=== PATIENT | female | born 1990 | race Hispanic/Latino ===

== ENCOUNTER 2023-07-30 10:18 | Emergency (ER) | payer BC ==
[~2023-07-30] VITALS: Ht 175.3 cm; Wt 94.8 kg
[2023-07-30 11:00] LABS: HEMATOCRIT 32.3 % (36-48); IMMATURE GRANULOCYTE ABSOLUTE 0.02 K/uL (0-1); LYMPHOCYTES # (AUTO) 0.2 K/uL (1.0-4.8); LYMPHOCYTES % (AUTO) 3.9 % (21.0-51.0); MEAN CORPUSCULAR HEMOGLOBIN 22.9 pg (27.0-33.0); MEAN CORPUSCULAR HGB CONC 31.3 g/dL (32.0-36.0); MEAN CORPUSCULAR VOLUME 73.2 fL (79-99); MONOCYTES # (AUTO) 0.3 K/uL (0.1-1.0); MONOCYTES % (AUTO) 5.9 % (3.0-13.0); NEUTROPHILS % (AUTO) 89.8 % (40.0-77.0); PLATELET COUNT (AUTO) 185 K/uL (130-400); RED BLOOD CELL COUNT(AUTO) 4.41 MIL/uL (4.00-5.50); RED CELL DISTRIBUTION WIDTH 17.7 % (11.0-15.5); WHITE BLOOD COUNT (AUTO) 5.6 K/uL (4.8-10.8)
[2023-07-30 11:08] LABS: RAPID GROUP A STREP negative (NEGATIVE)
[2023-07-30 11:09] LABS: SARS-CoV-2, RNA, NAAT POSITIVE SARS CoV-2 (NEGATIVE)
[2023-07-30 11:16] LABS: ALBUMIN 3.7 g/dL (3.5-5.0); BILIRUBIN,TOTAL 0.3 mg/dL (0.2-1.0); CREATININE 0.8 mg/dL (0.5-1.5); POTASSIUM 3.3 mmol/L (3.5-5.1); TOTAL PROTEIN, SERUM 7.1 g/dL (6.0-8.3)
[2023-07-30 11:17] LABS: INFLUENZA TYPE A Negative For Type A (NEGATIVE); INFLUENZA TYPE B Negative For Type B (NEGATIVE)
[2023-07-30] MEDS: ACETAMINOPHEN 500 MG TABLET PO ONE (11:49)
[2023-07-30] MEDS: KCL 20 MEQ ERTAB PO ONE (11:50)
[2023-07-30] MEDS ORDERED: BENZ-39 PO (11:50)
[2023-07-30] MEDS ORDERED: AUD IH (11:50)
[2023-07-30] MEDS ORDERED: AZIT500T2 PO (11:50)
[2023-07-30 12:16] VITALS: BP 111/70; PULSE 112; RESP 19; O2SAT 100
== END 2023-07-30 12:12 | disposition home or self-care (01) ==
LOC: EDH 10:18
DX: U07.1 COVID-19 (principal); R05.9 Cough, unspecified; R51.9 Headache, unspecified; E87.6 Hypokalemia
CPT/HCPCS: 36415; 71045; 80053; 83690; 84484; 85025; 87635; 87804; 87880; 93005

== ENCOUNTER 2023-07-31 21:54 | Emergency (ER) | payer BC ==
[~2023-07-31 21:54] MED LIST: AUD IH; AZIT500T2 PO; BENZ-39 PO
== END 2023-07-31 22:48 | disposition left against medical advice (07) ==
LOC: EDH 21:54
DX: R68.89 Other general symptoms and signs (principal); Z53.21 Procedure and treatment not carried out due to patient leaving prior to being seen by health care provider